=== PATIENT | female | born 1985 | race Caucasian/White ===

== ENCOUNTER 2016-12-06 11:58 | Emergency (ER) | payer OTHER ==
[~2016-12-06 11:58] MED LIST: COLACE 100MG C100 MG PO
== END 2016-12-06 15:36 | disposition home or self-care (01) ==
LOC: ER1 11:58
DX: J06.9 Acute upper respiratory infection, unspecified (principal)
CPT/HCPCS: 71020; 81001; 84703; 87081; 87880; 93005; 99283

== ENCOUNTER 2020-09-24 13:10 | Emergency (ER) | payer OTHER ==
[~2020-09-24 13:10] MED LIST changes: +NAPROSYN500 MG PO; +OMNICEF 300 MG300 MG PO; +TESSALON PERLE100 MG PO; +VENTOLIN HFA 66.7 GM INH; +ZOFRAN4 MG PO
[2020-09-24 15:12] LABS: WHITE BLOOD COUNT 10.9 K/UL (4.5-11.0)
[2020-09-24 16:22] LABS: BUN/CREATININE RATIO 17 (0-10)
== END 2020-09-24 16:58 | disposition home or self-care (01) ==
LOC: ER1 13:10
PROVIDERS: Emergency Medicine
DX: J06.9 Acute upper respiratory infection, unspecified (principal); R19.7 Diarrhea, unspecified; F17.200 Nicotine dependence, unspecified, uncomplicated; Z20.822 Contact with and (suspected) exposure to COVID-19
CPT/HCPCS: 71045; 80053; 81001; 85025; 87081; 87880; 99284; U0002

== ENCOUNTER 2020-12-30 18:54 | Emergency (ER) | payer OTHER ==
[2020-12-30 20:01] LABS: HEMOGLOBIN 13.3 gm/dl (12.3-15.3); RED BLOOD COUNT 4.39 M/UL (4.00-5.10)
[2020-12-30 20:18] LABS: BUN/CREATININE RATIO 17 (0-10)
== END 2020-12-30 23:00 | disposition home or self-care (01) ==
LOC: ER1 18:54
PROVIDERS: Family Medicine
DX: R07.9 Chest pain, unspecified (principal); R00.2 Palpitations; F17.200 Nicotine dependence, unspecified, uncomplicated
CPT/HCPCS: 71045; 80053; 82550; 82553; 83874; 84439; 84443; 84484; 85025; 93005; 99285

== ENCOUNTER 2021-05-05 15:31 | Emergency (ER) | payer OTHER ==
[2021-05-05 16:19] LABS: HEMOGLOBIN 14.7 gm/dl (12.3-15.3); RED BLOOD COUNT 5.06 M/UL (4.00-5.10); WHITE BLOOD COUNT 4.2 K/UL (4.5-11.0)
[2021-05-05 16:30] LABS: BUN/CREATININE RATIO 14 (0-10)
[2021-05-05] MEDS ORDERED: DELSYM30 MG/5 ML PO (18:19)
[2021-05-05] MEDS ORDERED: MEDROL DOSEPAK 24 MG PO (18:19)
== END 2021-05-05 18:30 | disposition home or self-care (01) ==
LOC: ER1 15:31
PROVIDERS: Physician Assistant
DX: U07.1 COVID-19 (principal); F17.200 Nicotine dependence, unspecified, uncomplicated
CPT/HCPCS: 71045; 80053; 82550; 82553; 83874; 84484; 85025; 85379; 93005; 99285

== ENCOUNTER 2021-07-15 12:57 | Emergency (ER) | payer OTHER ==
[~2021-07-15 12:57] MED LIST changes: +DELSYM30 MG/5 ML PO; +MEDROL DOSEPAK 24 MG PO
[2021-07-15 13:42] LABS: HEMOGLOBIN 15.5 gm/dl (12.3-15.3); RED BLOOD COUNT 5.19 M/UL (4.00-5.10); WHITE BLOOD COUNT 12.5 K/UL (4.5-11.0)
[2021-07-15 14:08] LABS: BUN/CREATININE RATIO 16 (0-10)
[2021-07-15] MEDS ORDERED: BENADRYL25 MG PO (15:15)
[2021-07-15] MEDS ORDERED: EPIPEN 2-P0.3 MG/0.3 INJ (15:15)
[2021-07-15] MEDS ORDERED: MEDROL DOSEPAK 24 MG PO (15:15)
== END 2021-07-15 16:05 | disposition home or self-care (01) ==
LOC: ER1 12:57
PROVIDERS: Emergency Medicine
DX: T78.1XXA Other adverse food reactions, not elsewhere classified, initial encounter (principal); F17.200 Nicotine dependence, unspecified, uncomplicated; Z90.89 Acquired absence of other organs
CPT/HCPCS: 36415; 71045; 80053; 82550; 82553; 83874; 84484; 84703; 85025; 85379; 93005; 96374; 96375; 99285; J0171; J1200; J2930

== ENCOUNTER 2021-08-12 08:57 | Emergency (ER) | payer OTHER ==
[~2021-08-12 08:57] MED LIST changes: +BENADRYL25 MG PO; +EPIPEN 2-P0.3 MG/0.3 INJ
== END 2021-08-12 11:51 | disposition home or self-care (01) ==
LOC: ER1 08:57
DX: R43.9 Unspecified disturbances of smell and taste (principal); F17.210 Nicotine dependence, cigarettes, uncomplicated; Z20.822 Contact with and (suspected) exposure to COVID-19
CPT/HCPCS: 99283; U0003

== ENCOUNTER 2021-08-16 20:16 | Emergency (ER) | payer OTHER ==
[2021-08-16 21:20] LABS: HEMOGLOBIN 14.6 gm/dl (12.3-15.3); RED BLOOD COUNT 4.92 M/UL (4.00-5.10); WHITE BLOOD COUNT 8.9 K/UL (4.5-11.0)
[2021-08-16 21:55] LABS: BUN/CREATININE RATIO 20 (0-10)
== END 2021-08-17 00:10 | disposition home or self-care (01) ==
LOC: ER1 20:16
PROVIDERS: Physician Assistant
DX: R07.89 Other chest pain (principal); R51.9 Headache, unspecified; Z90.49 Acquired absence of other specified parts of digestive tract; F17.210 Nicotine dependence, cigarettes, uncomplicated
CPT/HCPCS: 36415; 70450; 71045; 80053; 82550; 82553; 83874; 84484; 85025; 85379; 93005; 96374; 99284; J1885

== ENCOUNTER 2021-09-17 21:04 | Emergency (ER) | payer OTHER ==
[2021-09-17 22:25] LABS: HEMOGLOBIN 13.6 gm/dl (12.3-15.3); RED BLOOD COUNT 4.77 M/UL (4.00-5.10); WHITE BLOOD COUNT 10.5 K/UL (4.5-11.0)
[2021-09-17 22:57] LABS: BUN/CREATININE RATIO 18 (0-10)
== END 2021-09-18 01:26 | disposition left against medical advice (07) ==
LOC: ER1 21:04
PROVIDERS: Physician Assistant
DX: R07.89 Other chest pain (principal); R06.02 Shortness of breath; F17.210 Nicotine dependence, cigarettes, uncomplicated; Z20.822 Contact with and (suspected) exposure to COVID-19
CPT/HCPCS: 0240U; 80053; 81001; 82550; 82553; 83874; 83880; 84484; 84703; 85025; 85379; 85610; 85730; 87086; 93005; 99283

== ENCOUNTER 2021-12-14 10:14 | Emergency (ER) | payer OTHER ==
[2021-12-14 11:02] LABS: HEMOGLOBIN 13.4 gm/dl (12.3-15.3); RED BLOOD COUNT 4.6 M/UL (4.00-5.10); WHITE BLOOD COUNT 10.4 K/UL (4.5-11.0)
[2021-12-14 11:26] LABS: BUN/CREATININE RATIO 12 (0-10)
== END 2021-12-14 13:25 | disposition home or self-care (01) ==
LOC: ER1 10:14
PROVIDERS: Emergency Medicine
DX: R00.2 Palpitations (principal); R53.83 Other fatigue; Z90.49 Acquired absence of other specified parts of digestive tract; Z90.89 Acquired absence of other organs; F17.200 Nicotine dependence, unspecified, uncomplicated
CPT/HCPCS: 71045; 80048; 80307; 81001; 82550; 82553; 83735; 84439; 84443; 84484; 84703; 85025; 93005; 99284

== ENCOUNTER 2021-12-23 10:18 | Emergency (ER) | payer OTHER | END 2021-12-23 12:46 | disposition left against medical advice (07) | LOC: ER1 10:18 | DX: Z53.21 Procedure and treatment not carried out due to patient leaving prior to being seen by health care provider (principal) ==

== ENCOUNTER 2022-02-21 22:08 | Emergency (ER) | payer OTHER ==
[2022-02-21 23:08] LABS: HEMOGLOBIN 13.9 gm/dl (12.3-15.3); RED BLOOD COUNT 4.79 M/UL (4.00-5.10); WHITE BLOOD COUNT 10.8 K/UL (4.5-11.0)
[2022-02-21 23:37] LABS: BUN/CREATININE RATIO 11 (0-10)
== END 2022-02-22 02:06 | disposition home or self-care (01) ==
LOC: ER1 22:08
PROVIDERS: Nurse Practitioner
DX: R07.2 Precordial pain (principal); Z90.49 Acquired absence of other specified parts of digestive tract; Z90.89 Acquired absence of other organs
CPT/HCPCS: 71045; 80053; 80307; 81001; 82550; 82553; 83735; 84100; 84439; 84443; 84484; 84703; 85025; 85379; 93005; 99285

== ENCOUNTER 2022-04-03 02:46 | Emergency (ER) | payer OTHER ==
[2022-04-03 03:49] LABS: HEMOGLOBIN 12.4 gm/dl (12.3-15.3); RED BLOOD COUNT 4.27 M/UL (4.00-5.10); WHITE BLOOD COUNT 9.4 K/UL (4.5-11.0)
[2022-04-03 04:01] LABS: BUN/CREATININE RATIO 19 (0-10)
== END 2022-04-03 06:49 | disposition home or self-care (01) ==
LOC: ER1 02:46
PROVIDERS: Family Medicine
DX: R07.9 Chest pain, unspecified (principal); R06.00 Dyspnea, unspecified; Z90.49 Acquired absence of other specified parts of digestive tract; F17.200 Nicotine dependence, unspecified, uncomplicated; Z20.822 Contact with and (suspected) exposure to COVID-19
CPT/HCPCS: 71045; 80053; 82550; 82553; 84484; 84703; 85025; 85379; 93005; 99285; U0002